=== PATIENT | female | born 1990 | race African-American/Black ===

== ENCOUNTER → 2023-07-16 | Outpatient (CLI) | payer OTHER | LOC: M EKG 08:55 | PROVIDERS: ATTEND Family Medicine | DX: D57.3 Sickle-cell trait (principal); O24.32 Unspecified pre-existing diabetes mellitus in childbirth ==

== ENCOUNTER → 2023-07-21 | Outpatient (CLI) | payer OTHER | LOC: M PLAIMG 12:57 | PROVIDERS: ATTEND Family Medicine | DX: O24.32 Unspecified pre-existing diabetes mellitus in childbirth (principal); D57.3 Sickle-cell trait ==

== ENCOUNTER 2023-11-02 17:28 | Outpatient (CLI) | payer OTHER ==
[~2023-11-02] VITALS: Ht 160 cm; Wt 102.3 kg
[2023-11-02 17:54] VITALS: BP 114/65
[2023-11-02] MEDS ORDERED: PRENTAB9 PO (17:59)
[2023-11-02] MEDS ORDERED: FOLI1TAB11 PO (17:59)
[2023-11-02] MEDS ORDERED: NOVOINJ12 SC (18:00)
[2023-11-02] MEDS ORDERED: [UNRECOGNIZED DRUG - OTHER] (18:03)
[2023-11-02] MEDS ORDERED: HUMU1INJ2 SC (18:03)
[2023-11-02] MEDS ORDERED: ASPI-226 PO (18:05)
[2023-11-02] MEDS ORDERED: NS 1,000 ML IV SCH (18:30)
[2023-11-02] MEDS: LOPERAMIDE 2 MG CAPLET PO ONE (18:38)
[2023-11-02] MEDS: SODIUM CHLORIDE 0.9% 1000ML IV ONE (18:50)
[2023-11-02 19:07] LABS: HEMATOCRIT 36.9 % (36.0-47.0); HEMOGLOBIN 12.3 g/dl (12.0-15.5); MEAN CORPUSCULAR HEMOGLOBIN 27.1 pg (27.0-33.0); MEAN CORPUSCULAR HGB CONC 33.3 g/dl (32.0-36.5); MEAN CORPUSCULAR VOLUME 81.3 fl (80.0-96.0); PLATELET COUNT, AUTOMATED 218 10^3/uL (150-450); RED BLOOD COUNT 4.54 10^6/uL (4.00-5.40); WHITE BLOOD COUNT 8.5 10^3/uL (4.0-10.0)
[2023-11-02 19:21] VITALS: BP 110/69
[2023-11-02 19:29] LABS: ALBUMIN 2.9 G/DL (3.2-5.2); ALKALINE PHOSPHATASE 137 U/L (46-116); ALT/SGPT 26 U/L (7.0-40); AST/SGOT 20 U/L (<34); BILIRUBIN,TOTAL 0.3 MG/DL (0.3-1.2); BLOOD UREA NITROGEN 10 MG/DL (9-23); CALCIUM LEVEL 9.4 MG/DL (8.5-10.1); CARBON DIOXIDE LEVEL 21 MMOL/L (20-31); CHLORIDE LEVEL 108 MMOL/L (98-107); CREATININE FOR GFR 0.63 MG/DL (0.55-1.30); GLOMERULAR FILTRATION RATE > 60.0 (>60); GLUCOSE, FASTING 153 MG/DL (60-100); POTASSIUM SERUM 4.4 MMOL/L (3.5-5.1); SODIUM LEVEL 138 MMOL/L (136-145); TOTAL PROTEIN 6.8 G/DL (5.7-8.2)
[2023-11-02] MEDS: ONDANSETRON 4MG 2ML VIAL IV ONE (19:42)
[2023-11-02] MEDS: ACETAMINOPHEN 500 MG TAB PO ONE (20:28)
[2023-11-02 20:33] LABS: APPEARANCE, URINE CLEAR (CLEAR); BACTERIA, URINE AUTO NEGATIVE (NEGATIVE); BILIRUBIN, URINE AUTO NEGATIVE (NEGATIVE); BLOOD, URINE BLOOD NEGATIVE (NEGATIVE); COLOR, URINE YELLOW (YELLOW); GLUCOSE, URINE (UA) AUTO 1+ mg/dL (NEGATIVE); KETONE, URINE AUTO NEGATIVE (NEGATIVE); LEUKOCYTE ESTERASE, URINE AUTO NEGATIVE (NEGATIVE); NITRITE, URINE AUTO NEGATIVE (NEGATIVE); PROTEIN, URINE AUTO NEGATIVE (NEGATIVE); RBC, URINE AUTO 1 /HPF (0-3); SPECIFIC GRAVITY URINE AUTO 1.014 (1.002-1.035); SQUAMOUS EPITHELIAL CELL UR AU 1 /HPF (0-6); UROBILINOGEN, URINE AUTO 0.2 mg/dL (0.0-2.0); WBC, URINE AUTO 0 /HPF (0-3)
== END 2023-11-02 21:04 | disposition home or self-care (01) ==
LOC: M LDO 17:28
PROVIDERS: ATTEND Advanced Practice Midwife
DX: O99.613 Diseases of the digestive system complicating pregnancy, third trimester (principal); O24.113 Pre-existing type 2 diabetes mellitus, in pregnancy, third trimester; O99.343 Other mental disorders complicating pregnancy, third trimester; O34.219 Maternal care for unspecified type scar from previous cesarean delivery; O99.03 Anemia complicating the puerperium; K52.9 Noninfective gastroenteritis and colitis, unspecified; Z79.4 Long term (current) use of insulin; F41.8 Other specified anxiety disorders; D57.3 Sickle-cell trait; Z3A.29 29 weeks gestation of pregnancy
CPT/HCPCS: 59025; 76815; 80053; 81001; 85027; 87086; 96374; G0463; J2405

== ENCOUNTER → 2024-06-17 | Outpatient (CLI) | payer OTHER ==
[~2024-06-17] MED LIST: ASPI-226 PO; FOLI1TAB11 PO; HUMU1INJ2 SC; ISOVUE-370 76% 100ML VIAL As Ordered ONE; NOVOINJ12 SC; PRENTAB9 PO; [UNRECOGNIZED DRUG - OTHER]
== END ==
LOC: M RAD 12:08
PROVIDERS: ATTEND Surgery
DX: K80.20 Calculus of gallbladder without cholecystitis without obstruction (principal)
CPT/HCPCS: 74177; Q9967